=== PATIENT | female | born 1955 | race Two or more races ===

== ENCOUNTER 2018-10-18 19:40 | Emergency (ER) | payer MEDICAID ==
[~2018-10-18] VITALS: Ht 160 cm; Wt 90.7 kg
[~2018-10-18 19:40] MED LIST: AURALGAN OTIC S14 ML OT; CIPRO500 MG PO; NKM; [UNRECOGNIZED DRUG - OTHER] RIGHT EYE
[2018-10-18] MEDS ORDERED: NKM (19:49)
--- NOTE | 2018-10-18 20:06 | NUR ---
ED Nurse Note: pt walked in c/o rash and pain on left lower extremity x 2 months, pt reports it was oozing pus as well. noted redness with scab, swelling rash on LL ankle area, will cont monitor.
[2018-10-18 20:07] VITALS: BP 145/77
[2018-10-18] MEDS ORDERED: Lidocaine 1% MPF 10mg/ml 5ml INJ ONE (20:15)
--- NOTE | 2018-10-18 20:31 | Emergency Room Report ---
History of Present Illness General Chief Complaint: Skin Rash/Abscess Source: Patient Present Illness HPI 63-year-old Dutch-speaking female with no significant past medical history here complaining of pain and swelling as well as pruritus in the left foot. Patient reports that she has been having the symptoms for the past 2 months. 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 However her left foot is swollen and warm to touch. Patient is rating her pain 10 out of 10 without radiation. Denies any calf tenderness. Denies tingling and numbness. Reports that there has been minimal pus drainage from her left foot. Denies any recent fall or injury. Denies chest pain, shortness of breath , palpitation, abdominal pain, and all other associated symptoms. Patient is ambulatory and is able to bear weight on the affected side. Patient appears to have an underlying psychiatric disorder unknown. Allergies: Coded Allergies: No Known Allergies (Unverified , 01/26/12) Patient History Past Medical History: see triage record Past Surgical History: unable to obtain Pertinent Family History: none Now: No Immunizations: UTD Reviewed Nursing Documentation: PMH: Agreed; PSxH: Agreed Nursing Documentation-PMH Past Medical History: No Stated History Hx Gastrointestinal Problems: Yes Review of Systems All Other Systems: negative except mentioned in HPI Physical Exam Vital Signs Date Time Temp Pulse Resp B/P (MAP) Pulse Ox O2 Delivery O2 Flow Rate FiO2 10/18/18 19:44 97.9 72 22 145/77 (99) 96 Room Air Sp02 EP Interpretation: reviewed, normal General Appearance: normal inspection, well appearing, no apparent distress, alert Head: normocephalic, atraumatic Eyes: bilateral eye normal inspection, bilateral eye PERRL ENT: normal ENT inspection, normal pharynx Neck: normal inspection, full range of motion, supple Respiratory: normal inspection, chest non-tender, lungs clear, no rhonchi, no respiratory distress, no wheezing Cardiovascular #1: normal inspection, regular rate, rhythm, no edema, no JVD, no murmur, normal capillary refill Cardiovascular #2: 2+ dorsalis pedis (R), 2+ dorsalis pedis (L) Gastrointestinal: normal inspection, soft Rectal: deferred Genitourinary: no CVA tenderness Musculoskeletal: back normal Neurologic: alert, oriented x3, responsive Psychiatric: normal inspection, judgement/insight normal Skin: other - Cellulitis left foot Lymphatic: normal inspection, no adenopathy Medical Decision Making PA Attestation All diagnoses and treatment plans were reviewed and discussed with my supervising physician Dr. Francis Diagnostic Impression: Primary Impression: Cellulitis of left foot ER Course 63-year-old Dutch-speaking female with no significant past medical history here complaining of pain and swelling as well as pruritus in the left foot. Patient reports that she has been having the symptoms for the past 2 months. 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 However her left foot is swollen and warm to touch. Patient is rating her pain 10 out of 10 without radiation. Denies any calf tenderness. Denies tingling and numbness. Reports that there has been minimal pus drainage from her left foot. Denies any recent fall or injury. Denies chest pain, shortness of breath , palpitation, abdominal pain, and all other associated symptoms. Patient is ambulatory and is able to bear weight on the affected side. Patient appears to have an underlying psychiatric disorder unknown. Ddx considered but are not limited to : Cellulitis, DVT, superficial infection, abscess Vital signs: are WNL, pt. is afebrile H&PE are most consistent with: Cellulitis left foot ORDERS: Rocephin, x-ray left foot, Keflex ED INTERVENTIONS: Rocephin DISCHARGE: At this time pt. is stable for d/c to home. Will provide printed patient care instructions, and any necessary prescriptions. Care plan and follow up instructions have been discussed with the patient prior to discharge. Follow-up with your primary care provider if worsening symptoms return to the emergency room at this time no signs of deep vein thromboses noted no foreign body noted on the x-ray patient is stable to be discharged. Other X-Ray Diagnostic Results Other X-Ray Diagnostic Results : X-Ray ordered: left foot # of Views/Limited Vs Complete: 3 View Indication: Pain EP Interpretation: Yes PA Xray: Interpretation reviewed, by supervising MD, and agrees with findings. Interpretation: no dislocation, no fractures, other - no FB Impression: No acute disease Electronically Signed by: Spenser Feng PA-C Last Vital Signs Date Time Temp Pulse Resp B/P (MAP) Pulse Ox O2 Delivery O2 Flow Rate FiO2 10/18/18 20:07 97.9 74 16 145/77 98 Room Air Disposition: HOME, SELF-CARE Condition: Stable Patient Instructions: Cellulitis, [id number] Additional Instructions: Follow-up with your primary care provider take medication as directed at this time no signs of blood clot noted and no foreign body noted in your x-ray. If worsening symptoms, fever and chills return to the emergency room. Spenser Patton Oct 18, 2018 20:31
[2018-10-18] MEDS ORDERED: IBU800 MG PO (20:32)
[2018-10-18] MEDS ORDERED: CEPHALEXIN500 MG ORAL (20:32)
[2018-10-18 21:00] VITALS: BP 138/75
--- NOTE | 2018-10-18 21:00 | NUR ---
ED Nurse Note: pt cleared to be d/c per ER provider, pt discharge and aftercare instruction provided to pt per charge nurse, pt left w/ all belongings.
--- NOTE | 2018-10-19 10:47 | Diagnostic Imaging Report ---
Indication: Pain. Technique: XRAY Foot 2v L Comparison: None Findings: No acute fracture or dislocation. Joint spaces are maintained. Lisfranc alignment cannot be accurately assessed due to obliquity of AP view. No acute soft tissue abnormality. Impression: No acute fracture or dislocation.
== END 2018-10-18 21:00 | disposition home or self-care (01) ==
LOC: EMR 20:40
DX: L03.116 Cellulitis of left lower limb (principal)
CPT/HCPCS: 73620; 96372; 96374; 99283; J0696

== ENCOUNTER 2018-11-05 20:48 | Emergency (ER) | payer MEDICAID ==
[~2018-11-05] VITALS: Ht 167.6 cm; Wt 113.4 kg
[~2018-11-05 20:48] MED LIST changes: +CEPHALEXIN500 MG ORAL; +IBU800 MG PO
[2018-11-05] MEDS ORDERED: ANUSOL-HC30 GM RC (21:19)
[2018-11-05] MEDS ORDERED: CEPHALEXIN500 MG ORAL (21:19)
[2018-11-05 21:20] VITALS: BP 143/73
--- NOTE | 2018-11-05 21:21 | Emergency Room Report ---
History of Present Illness General Chief Complaint: Pain Source: Patient Present Illness HPI Disclaimer: Please note that this report is being documented using DRAGON technology. This can lead to erroneous entry secondary to incorrect interpretation by the dictating instrument. HPI: 63-year-old female history of eczema presents for evaluation of right foot itching. Symptoms present roughly 6 months after dropping bleachers some over- the-counter cleaning product onto her foot. Notes itching, swelling and because of her repeated scratching intermittent bleeding and purulent discharge. She was prescribed antibiotics at an urgent care several days ago however she never filled her prescription. Is able to ambulate. Denies significant pain. Only complaining of itching. No systemic systems. PMH: Eczema PSH: See chart Allergies: None listed Social Hx: Denies alcohol or drug abuse Allergies: Coded Allergies: No Known Allergies (Unverified , 01/26/12) Nursing Documentation-PMH Past Medical History: No Stated History Hx Gastrointestinal Problems: Yes Review of Systems All Other Systems: negative except mentioned in HPI Physical Exam Vital Signs Date Time Temp Pulse Resp B/P (MAP) Pulse Ox O2 Delivery O2 Flow Rate FiO2 11/05/18 20:50 97.9 100 14 143/73 (96) 98 Room Air General: Awake and alert, no acute distress HEENT: NC/AT. EOMI. Resp: Normal work of breathing. Skin: Intact. Erythematous, warm to the touch over the dorsum of the right foot. No overlying skin breakdown, no blistering, no bleeding. MSK: Normal tone and bulk. Moving all extremities. No obvious deformity. Neuro: Awake and alert. Mentating appropriately. Medical Decision Making Diagnostic Impression: Primary Impression: Cellulitis of foot ER Course This 63-year-old female presenting for evaluation of 6 months intermittent itching, pain of the right foot. Differential includes was not limited to cellulitis, occult fracture, allergic reaction, contact dermatitis, eczema. Patient had negative x-rays on the 12th of this month showing no fracture. Likely, this is a early cellulitis which we will treat with Keflex however we will also prescribe hydrocortisone cream for her intense itching. She can follow-up with her primary care provider as an outpatient. We discussed reasons to return to the emergency department. She understands and agrees with this treatment plan. Last Vital Signs Date Time Temp Pulse Resp B/P (MAP) Pulse Ox O2 Delivery O2 Flow Rate FiO2 8/30/19 20:50 97.9 100 14 143/73 (96) 98 Room Air Disposition: HOME, SELF-CARE Condition: Stable Scripts Cephalexin* (KEFLEX*) 500 Mg Capsule 500 MG ORAL EVERY 12 HOURS for 7 Days, #14 CAP 0 Refills Prov: Bird Francis MD 11/05/18 Hydrocortisone Hc 2.5% Cream (ANUSOL-HC 2.5% CREAM) Y Cr 30 GM RC BID, #30 GM Prov: Bird Francis MD 11/05/18 Referrals: [facility] Patient Instructions: Contact Dermatitis, [id number], Preseptal Cellulitis, Adult Additional Instructions: Use the antibiotics and the medicated cream for treatment of your foot infection and itchiness. Please see your remote computer terminal operator or your primary doctor as soon as possible to discuss this emergency department visit and for reevaluation. Return to the emergency department any new or worsening symptoms Bird Francis MD Nov 05, 2018 21:21
[2018-11-05 21:40] VITALS: BP 138/76
--- NOTE | 2018-11-05 21:40 | NUR ---
ED Nurse Note: pt cleared to be d/c per ERMD, pt discharge and aftercare instruction provided w/ prescription, pt education done via discussion and handout, pt advised to follow up with pcp, list of clinic referral given, pt verbalized understanding and agrees with plan, pt advised to return to ed if changes in condition, vss, ambulatory w/steady gait, left w/ all belongings.
== END 2018-11-05 21:20 | disposition home or self-care (01) ==
LOC: EMR 21:05
DX: L03.115 Cellulitis of right lower limb (principal)
CPT/HCPCS: 99282